=== PATIENT | female | born 1955 | race Caucasian/White ===

== ENCOUNTER 2017-12-15 13:11 | Emergency (ER) | payer OTHER ==
[~2017-12-15] VITALS: Ht 154.9 cm; Wt 55.7 kg
[~2017-12-15 13:11] MED LIST: BACTRIM,SEPT1 TABLET PO; COLACE50 MG PO; JANUVIA100 MG PO; LIPITOR40 MG PO; LYRICA75 MG PO; MILK OF MAGN PO; NORCO 5/3251 TABLET PO; TRAMADOL HCL50 MG PO
[2017-12-15 14:04] LABS: HEMATOCRIT 39.9 % (36.0-46.0); HEMOGLOBIN 13.6 G/DL (11.9-15.5); MCH 30.6 PG (29.0-34.0); MCHC 34.1 G/DL (30.0-36.0); MCV 89.7 FL (83-99); PLATELET COUNT 239 K/uL (156-360); RBC DIS.WIDTH-CV 11.7 % (11.8-14.6); RBC DIS.WIDTH-SD 38.2 % (39-53); RED BLOOD COUNT 4.45 M/uL (3.80-5.20); WHITE BLOOD COUNT 8.9 K/uL (4.1-10.2)
[2017-12-15 14:09] LABS: INTER. NORMALIZED RATIO 0.9
[2017-12-15 14:12] LABS: PTT 25.2 SEC (25-37)
[2017-12-15 14:15] LABS: CHLORIDE 96 mEq/L (99-109); POTASSIUM 3.9 mEq/L (3.7-5.4); SODIUM 134 mEq/L (136-147)
[2017-12-15 14:17] LABS: GLUCOSE 345 mg/dL (70-99)
[2017-12-15 14:21] LABS: CREATININE 0.8 mg/dL (0.6-1.3); GFR ESTIMATE (CALCULATED) > 59 mL/min/; UREA NITROGEN (BUN) 12 mg/dL (9-23)
[2017-12-15 14:29] LABS: TROP-I INTERPRETATION NEGATIVE; TROPONIN-I < 0.01 ng/mL (0.0-0.30)
[2017-12-15] MEDS ORDERED: PLAVIX300 MG PO (18:36)
[2017-12-15] MEDS ORDERED: HYDROCHLOROTHIA25 MG PO (18:36)
[2017-12-15 18:59] VITALS: BP 180/78
== END 2017-12-15 19:03 | disposition home or self-care (01) ==
LOC: EME 13:11
PROVIDERS: Emergency Medicine
DX: I65.02 Occlusion and stenosis of left vertebral artery (principal); M54.2 Cervicalgia; E11.40 Type 2 diabetes mellitus with diabetic neuropathy, unspecified; Z79.84 Long term (current) use of oral hypoglycemic drugs; E78.5 Hyperlipidemia, unspecified; I10 Essential (primary) hypertension; M79.7 Fibromyalgia; Z88.6 Allergy status to analgesic agent; Z88.5 Allergy status to narcotic agent
CPT/HCPCS: 70496; 70498; 71046; 80048; 82948; 84484; 85027; 85610; 85730; 93005; 99281; 99285; J1200; J2270